=== PATIENT | born 1995 ===

== ENCOUNTER 2021-07-19 13:06 | Outpatient (CLI) | payer OTHER, SELFPAY ==
[2021-07-19 14:49] LABS: SARS-CoV-2 Ag Positive (Negative)
== END 2021-07-19 13:07 | disposition home or self-care (01) ==
LOC: CHSLAB 13:10
PROVIDERS: PCP Physician Assistant; Visit Provider Physician Assistant
DX: U07.1 COVID-19 (principal)
CPT/HCPCS: 87426; C9803